=== PATIENT | female | born 1965 | race Caucasian/White ===

== ENCOUNTER 2016-11-20 07:32 | Observation (INO) | payer OTHER ==
[2016-11-20] MEDS ORDERED: NS 1,000 ML IV ONE (07:35)
[2016-11-20] MEDS ORDERED: ASPIRIN EC 325 MG TAB PO ONE (07:35)
[2016-11-20] MEDS ORDERED: FAMOTIDINE 20 MG TAB PO ONE (07:35)
[2016-11-20] MEDS ORDERED: DIAZEPAM 5 MG TAB PO ONE (07:35)
[2016-11-20] MEDS ORDERED: diphenhydrAMINE 25 MG CAP PO ONE (07:35)
--- NOTE | 2016-11-20 08:06 | CPEKG ---
Heart Rate: 98 RR Interval: 612 P-R Interval: 168 QRSD Interval: 78 QT Interval: 356 QTC Interval: 455 P Stur[place]: 15 QRS [place]: 47 T Wave Stur[place]: 72 EKG Severity - ABNORMAL ECG - EKG Impression: SINUS RHYTHM EKG Impression: NONSPECIFIC T ABNORMALITIES, ANT-LAT LEADS Electronically Signed By: Yevgeniy Nunes 20-Nov-2016 10:25:03
[2016-11-20 08:21] LABS: % IMMATURE GRANULYOCYTES 0.3 % (0.0-1.1); ABSOLUTE IMMATURE GRANULOCYTES 0.02 10^3/uL (0.00-0.10); ADD DIFF? NO; ADD MORPH? NO; ADD SCAN? NO; ATYPICAL LYMPHOCYTE FLAG 0 (0-99); FRAGMENT RBC FLAG 0 (0-99); HEMATOCRIT 42.2 % (38.0-47.0); HEMOGLOBIN 14.5 g/dL (12.6-16.3); LEFT SHIFT FLG 0 (0-99); LIPEMIA HEMOLYSIS FLAG 90 (0-99); MEAN CELL HEMOGLOBIN 31.3 pg (27.9-34.1); MEAN CELL HEMOGLOBIN CONCENTR. 34.4 g/dL (32.4-36.7); MEAN CELL VOLUME 90.9 fL (81.5-99.8); MEAN PLATELET VOLUME 9.4 fL (8.7-11.7); PLATELET CLUMPS FLAG 0 (0-99); PLATELET COUNT 274 10^3/uL (150-400); RED BLOOD CELL COUNT 4.64 10^6/uL (4.18-5.33); RED CELL DISTRIBUTION WIDTH 11.7 % (11.5-15.2)
[2016-11-20 08:30] LABS: INR 0.93 (0.83-1.16); PROTIME(PATIENT) 12.4 SEC (12.0-15.0)
[2016-11-20 08:36] LABS: ANION GAP 15 mEq/L (8-16); CALCIUM 9.9 mg/dL (8.5-10.4); CARBON DIOXIDE 23 mEq/l (22-31); CHLORIDE 101 mEq/L (97-110); CHOLESTEROL 235 mg/dL (140-220); CHOLESTEROL/HDL RATIO 2.87 RATIO (1.00-4.44); CREATININE 0.8 mg/dL (0.6-1.0); GLOMERULAR FILTRATION RATE > 60; GLUCOSE 101 mg/dL (70-100); HIGH DENSITY LIPOPROTEIN 82 mg/dL (40-85); LDL/HDL RATIO 1.54 RATIO (1.00-3.22); LOW DENSITY LIPOPROTEIN 126 mg/dL (80-100); MAGNESIUM 2.2 mg/dL (1.6-2.3); NON-HIGH DENSITY LIPOPROTEIN 153 mg/dL (90-129); POTASSIUM 4.2 mEq/L (3.5-5.2); SODIUM 139 mEq/L (134-144); TRIGLYCERIDE 139 mg/dL (35-135); VERY LOW DENSITY LIPOPROTEINS 27 mg/dL (8-25)
[2016-11-20] MEDS ORDERED: LIDOCAINE 1% 300 MG/30 ML SDV ONE (08:48)
[2016-11-20] MEDS ORDERED: fentaNYL 100 MCG/2 ML INJ ONE ×3 (08:48→10:03)
[2016-11-20] MEDS ORDERED: IOPAMIDOL (ISOVUE-370) 150 ML BTL IV ONE (08:49)
[2016-11-20] MEDS ORDERED: MIDAZOLAM 2 MG/2 ML VIAL ONE ×5 (08:49→10:05)
--- NOTE | 2016-11-20 09:00 | PDPROPOC ---
Sedation Plan of Care Sedation Plan of Care: vital signs stable, mental status noted, patient educated of risks, benefits, alternatives, patient can tolerate sedation ASA Classification: ASA 1 Planned drugs: fentanyl, midazolam Mallampati Score: Class 1 Mallampati Reference Image: Patient passed 3-3-2 rule?: Yes
--- NOTE | 2016-11-20 09:05 | PDGENHP ---
History & Physical Chief Complaint: Chest pains with abnormal ECG History of Present Illness: Patient is a 51 y/o female with HTN, HLP, and strong , premature CAD to the family, who has noted further complaints of chest pains. ECG continues to have non specific findings (suggestive of ischaemia). 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 remainder of PE is as noted with last office visit in August 2016 Cardiorespiratory Assessment: RRR without m/r/g, normal S1S2, no JVD, no edema, no dyspnea
[2016-11-20] MEDS ORDERED: BIVALIRUDIN 250 MG/5 ML VIAL IV ONE (09:52)
[2016-11-20] MEDS ORDERED: NITROGLYCERIN 1,500 MCG/15 ML VIAL MISC ONE (10:05)
--- NOTE | 2016-11-20 10:26 | PDDXCAT ---
Diagnostic Cath Note - . Date: 11/20/16 Staffing Specialist: Manju Indication: Patient w angina/susp CAD, cannot be risk stratified by other means , Patient occupation involves safety of others, with high risk for CAD - Procedure Access: right groin Procedure: left heart catheterization, coronary angiography, left ventriculogram - Materials Left Heart Cath size: 6F Left Heart Cath materials: standard multipack (JL4, JR4, pigtail) - Findings-Left Heart Catheterization LM: short vessel with bifurcation into the LAD and LCX. no luminal irregularities were noted LAD: medium diameter vessel with noted calcium in the proximal segment. just proximal to D1 there was an 80% lesion noted. just distal to D2 (principal) there was another segment of luminal irregularities noted (50-60%). further distal there is a smallish D3. LCX: large caliber vessel with a principal OM. no appreciable luminal irregularities were noted in the circumflex system RCA: medium diameter vessel with trifurcation distally into branches that supply the PDA territory. this lesion was 50-60% as well. OLIVIA III flow was noted. EDP: 16 mm Hg LVEF: 65% Wall motion: normal wall motion Complications: none Estimated blood loss: <50ml Closure method: other (pending intervention) Assessment: patient is a 51 y/o female with history of CAD (by MSCT), HTN, HLP, and strong, premature CAD family history with non specific ST/T wave changes on ETT, no overt ischaemia on MPI, but complaints of chest pains. patient was taken to the custodial laborer and a critical proximal LAD lesion was noted with luminal irregularities to the mid LAD and distal RCA. normal LVEF and wall motion Plan: Dr. Emy Rausch to perform PCI to the proximal LAD lesion. Intervention: pLAD
[2016-11-20] MEDS ORDERED: PRASUGREL HCL 10 MG TAB ONE (10:29)
[2016-11-20] MEDS ORDERED: PRASUGREL HCL 10 MG TAB PO ONE (11:01)
[2016-11-20] MEDS ORDERED: ATROPINE SULFATE 1 MG/10 ML SYR IVP PRN (11:01)
[2016-11-20] MEDS ORDERED: ACETAMINOPHEN 325 MG TAB PO PRN (11:01)
[2016-11-20] MEDS ORDERED: NITROGLYCERIN 0.4 MG BTL SL PRN (11:01)
[2016-11-20] MEDS ORDERED: ONDANSETRON 4 MG/2 ML VIAL IVP PRN (11:01)
[2016-11-20] MEDS ORDERED: TEMAZEPAM 15 MG CAP PO PRN (11:01)
--- NOTE | 2016-11-20 11:14 | PDDXCAT ---
Diagnostic Cath Note - . Date: 11/20/16 Seo Team Lead: Shalom Indication: other (Chest discomfort; High grade proximal LAD stenosis; High risk occupation.) Complications: None Estimated blood loss: <50ml Closure method: Angioseal Assessment: Successful PCI of the LAD using a single drug coated stent. Plan: 1) Aggressive secondary prevention. 2) Dual antiplatelet therapy for 1 year. Intervention: Please refer to the diagnostic cardiac cath note by Dr. Yevgeniy Nunes. 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 The patient received intravenous Angiomax. A 6 [place] CLS 3.5 guide catheter was advanced to the left main. An Intuition guidewire was advanced to the apical portion of the LAD. Predilatation of the target lesion was performed using a 2.5 x 12 mm Emerge balloon. A 3.0 x 20 mm Synergy stent was advanced into position and deployed at high pressure. Final angiograms demonstrated 0% residual stenosis and OLIVIA-III flow.
[2016-11-20] MEDS ORDERED: NS 1,000 ML IV SCH (11:15)
--- NOTE | 2016-11-20 12:19 | CPEKG ---
Heart Rate: 85 RR Interval: 706 P-R Interval: 168 QRSD Interval: 72 QT Interval: 380 QTC Interval: 452 P Buhl: 19 QRS Buhl: 52 T Wave Buhl: 57 EKG Severity - ABNORMAL ECG - EKG Impression: SINUS RHYTHM EKG Impression: ABNORMAL T, CONSIDER ISCHEMIA, ANTERIOR LEADS Preliminary Awaiting MD Review
--- NOTE | 2016-11-20 13:25 | CPEKG ---
Heart Rate: 94 RR Interval: 638 P-R Interval: 184 QRSD Interval: 70 QT Interval: 360 QTC Interval: 451 P [place]: 24 QRS [place]: 49 T Wave [place]: 48 EKG Severity - ABNORMAL ECG - EKG Impression: SINUS RHYTHM EKG Impression: NONSPECIFIC T ABNORMALITIES, ANTERIOR LEADS Electronically Signed By: Kenneth Lopez 20-Nov-2016 17:19:55
[2016-11-20] MEDS: HYDROCODONE/APAP 5/325 TAB PO PRN ×2 (15:58→19:51)
[2016-11-20] MEDS ORDERED: ARIPiprazole 5 MG TAB PO SCH (21:00)
[2016-11-20] MEDS ORDERED: VENLAFAXINE XR 75 MG CAP PO SCH (21:00)
[2016-11-20] MEDS ORDERED: LOSARTAN POTASSIUM 50 MG TAB PO SCH (21:00)
[2016-11-20] MEDS ORDERED: ZOLPIDEM TARTRATE 5 MG TAB PO SCH (21:00)
[2016-11-20] MEDS ORDERED: ROSUVASTATIN CALCIUM 20 MG TAB PO SCH (21:00)
[2016-11-20] MEDS ORDERED: NON-FORMULARY NEW DRUG (Eszopiclone [Lunesta] 3 MG) PO SCH (21:00)
[2016-11-21] MEDS: HYDROCODONE/APAP 5/325 TAB PO PRN ×2 (04:29→12:35)
[2016-11-21 05:54] LABS: % IMMATURE GRANULYOCYTES 0.2 % (0.0-1.1); ABSOLUTE IMMATURE GRANULOCYTES 0.01 10^3/uL (0.00-0.10); ADD DIFF? NO; ADD MORPH? NO; ADD SCAN? NO; ATYPICAL LYMPHOCYTE FLAG 10 (0-99); FRAGMENT RBC FLAG 0 (0-99); HEMOGLOBIN 13.9 g/dL (12.6-16.3); LEFT SHIFT FLG 0 (0-99); LIPEMIA HEMOLYSIS FLAG 90 (0-99); MEAN CELL HEMOGLOBIN 31.4 pg (27.9-34.1); MEAN CELL HEMOGLOBIN CONCENTR. 33.9 g/dL (32.4-36.7); MEAN CELL VOLUME 92.6 fL (81.5-99.8); MEAN PLATELET VOLUME 9.5 fL (8.7-11.7); PLATELET CLUMPS FLAG 0 (0-99); PLATELET COUNT 234 10^3/uL (150-400); RED BLOOD CELL COUNT 4.43 10^6/uL (4.18-5.33); RED CELL DISTRIBUTION WIDTH 11.8 % (11.5-15.2)
[2016-11-21 05:58] LABS: ANION GAP 11 mEq/L (8-16); CARBON DIOXIDE 24 mEq/l (22-31); CHLORIDE 105 mEq/L (97-110); GLUCOSE 87 mg/dL (70-100); POTASSIUM 4.6 mEq/L (3.5-5.2); SODIUM 140 mEq/L (134-144)
[2016-11-21 05:59] LABS: ALBUMIN 4.3 g/dL (3.5-5.0); ASPARTATE AMINOTRANSFERASE 26 IU/L (14-46); BILIRUBIN,TOTAL 0.7 mg/dL (0.1-1.4); CALCIUM 9.2 mg/dL (8.5-10.4); CREATININE 0.8 mg/dL (0.6-1.0); GLOMERULAR FILTRATION RATE > 60; LACTATE DEHYDROGENASE 456 IU/L (313-618); MAGNESIUM 2.4 mg/dL (1.6-2.3)
[2016-11-21 07:32] VITALS: RESP 16
[2016-11-21] MEDS ORDERED: ASPIRIN EC 325 MG TAB PO SCH (09:00)
[2016-11-21] MEDS ORDERED: MULTIVITAMINS 1 EACH TAB PO SCH (09:00)
[2016-11-21] MEDS ORDERED: PRASUGREL HCL 10 MG TAB PO SCH (09:00)
--- NOTE | 2016-11-21 09:17 | CPEKG ---
Heart Rate: 80 RR Interval: 750 P-R Interval: 164 QRSD Interval: 74 QT Interval: 388 QTC Interval: 448 P [place]: 18 QRS [place]: 33 T Wave [place]: 75 EKG Severity - BORDERLINE ECG - EKG Impression: SINUS RHYTHM EKG Impression: BORDERLINE T ABNORMALITIES, ANT-LAT LEADS Electronically Signed By: Yevgeniy Nunes 21-Nov-2016 09:52:21
[2016-11-21 11:37] VITALS: BP 117/84; PULSE 98; TEMP 99.3; O2SAT 91
--- NOTE | 2016-11-21 14:17 | ASMTCASEMG ---
Living Arrangements What is your living Answers: With Spouse arrangement? Who do you live with? Type Of Residence What kind of residence do Answers: House you live in? Discharge Plan Comments Coordination Status Comments Notes: Please disregard d/c summary on 11/21/16. Pt d/c home independently w/out any needs. Date Signed: 11/21/2016 02:17 PM Electronically Signed By:UMM Cee
--- NOTE | 2016-11-21 16:19 | ASDISCHSUM ---
Discharge Information Plan Status:Home with No Needs Medically Cleared to Leave:11/21/2016 Discharge Date:11/21/2016 02:44 PM D/C Disposition: ADT D/C Disposition:Home, Routine, Self-Care Projected Discharge Date:11/21/2016 12:00 AM Transportation at D/C: Discharge Delay Reason: Follow-Up Date:11/21/2016 12:00 AM Discharge Slot: Final Diagnosis: Placement Information Patient Contact Information Contact Name:ROSALIA Relationship:Nanette Address: Work Phone: City: [facility] Phone: State/[place] Code: Email: Financial Information Financial Class:[facility] Primary Plan Desc:YING O HMO OPEN ACC LOCAL Primary Plan Number:[id number] Secondary Plan Desc: Secondary Plan Number: Assessment Information [facility] Initial CM Assessment Living Arrangements What is your living Answers: With Spouse arrangement? Who do you live with? Type Of Residence What kind of residence do Answers: House you live in? Discharge Plan Comments Coordination Status Comments Notes: Chart reviewed and spoke w/ LEIGHA Sanchez, pt is a 39 y/o female admitted w/ hyperkalemia; ESRD. Pt will most likely discharge independent when medically stable w/ supportive . No therapies ordered at this time. CM available for changes. Date Signed: 11/21/2016 02:17 PM Electronically Signed By:UMM Cee Intervention Information
--- NOTE | 2016-11-21 19:57 | GDS ---
[f rep st] DISCHARGE SUMMARY REASON FOR ADMISSION: Coronary artery disease. HOSPITAL COURSE: Please refer to Dr. Yevgeniy Nunes recent office note, which serves as the admission h istory and physical for this hospital encounter. Please also refer to his diagnostic cardiac cathete rization report and my interventional cardiac catheterization report. Briefly, the patient is a 51-y ear-old woman with an extensive family history of premature coronary artery disease. She had some mi nimal issues with chest discomfort. A nuclear stress test did not reveal any significant findings winters ggestive of ischemia. However, because of her extensive family history, Dr. Nunes felt that it was appropriate for her to undergo cardiac catheterization. That procedure was performed yesterday. It demonstrated a proximal LAD lesion of 80%. There was moderate diffuse disease in the mid to distal L AD. The circumflex had trace atherosclerosis. The RCA had moderate disease at its distal portion. The decision was made to perform PCI of the proximal LAD lesion. She received a 3.0 x 20 mm Synergy stent. Overnight, she has had no symptoms of chest discomfort. She has not had any arrhythmias or e vidence of CHF. She has not had any bleeding complications at her right femoral catheterization site . RECOMMENDATIONS AND DISPOSITION ON DISCHARGE: The patient is stable for discharge today. She should pursue a heart-healthy diet and regular exercise. Her lipid panel in the hospital demonstrated a to jessica cholesterol of 235 with HDL 82, LDL 126, and triglycerides 139. Her target LDL should be less th an 70. Her Crestor dosage will be increased to 40 mg daily. The only addition to her medical regime n is Effient 10 mg daily. She should be on dual antiplatelet therapy for 12 months. Her other medic ludmila remain unchanged. 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 They will also arrange for a follow-up appointment with Dr. Nunes. DISCHARGE DIAGNOSES: 1. Coronary artery disease. 2. Hyperlipidemia. 3. Status post percutaneous coronary intervention of the LAD. /[id number]/MODL
[2016-11-22] MEDS ORDERED: ROSUVASTATIN CALCIUM 40 MG TAB PO SCH (09:00)
[2016-11-24 15:20] LABS: 2C19S INTERPRETATION See Comments
== END 2016-11-21 14:44 | disposition home or self-care (01) ==
LOC: FCATH 07:32 → F2W 10:43
PROVIDERS: ADMIT Internal Medicine Cardiovascular Disease; ATTEND Internal Medicine Cardiovascular Disease
PROC: 02703DZ Dilation of Coronary Artery, One Artery with Intraluminal Device, Percutaneous Approach (ICD-10-PCS; principal; 2016-11-20)
PROC: B2151ZZ Fluoroscopy of Left Heart using Low Osmolar Contrast (ICD-10-PCS; 2016-11-20)
PROC: B2111ZZ Fluoroscopy of Multiple Coronary Arteries using Low Osmolar Contrast (ICD-10-PCS; 2016-11-20)
PROC: 4A023N7 Measurement of Cardiac Sampling and Pressure, Left Heart, Percutaneous Approach (ICD-10-PCS; 2016-11-20)
DX: I25.10 Atherosclerotic heart disease of native coronary artery without angina pectoris (principal)
CPT/HCPCS: 92928; 93005; 93458; C1725; C1769; C1887; G0378; 81225-90; C1760; C1874; C9600; J0583; J1644; J2250; J3010; Q9967

== ENCOUNTER 2018-02-09 12:28 | Emergency (ER) | payer OTHER ==
[2018-02-09] MEDS ORDERED: NS 1,000 ML IV ONE ×2 (13:00→13:40)
--- NOTE | 2018-02-09 13:00 | EDPHY ---
H & P Stated Complaint: epistaxis this am/dr noted tachycardia/lightheaded Time Seen by Provider: 02/09/18 13:00 HPI/ROS: CHIEF COMPLAINT: Epistaxis, tachycardia HISTORY OF PRESENT ILLNESS: The patient presents the emergency department with a 1 day history of epistaxis. The patient is currently on Effient. The patient reportedly had heavy epistaxis last night which has resolved. The patient went to her primary care provider's office was noted to be tachycardic with a heart rate in the 150s. Patient does feel orthostatic and dizzy. The patient does have some nausea and did have an episode of vomiting secondary to swallowed blood this morning. She denies any asymmetric calf pain or swelling. She denies additional acute complaints. REVIEW OF SYSTEMS: A comprehensive 10 point review of systems is otherwise negative aside from elements mentioned in the history of present illness. Source: Patient - Personal History LMP (Females 10-55): IUD In Place Current Tetanus Diphtheria and Acellular Pertussis (TDAP): Yes - Medical/Surgical History Hx Asthma: No Hx Chronic Respiratory Disease: No Hx Diabetes: No Hx Cardiac Disease: Yes Hx Renal Disease: No Hx Cirrhosis: No Hx Alcoholism: No Hx HIV/AIDS: No Hx Splenectomy or Spleen Trauma: No Other PMH: nontramatic brain bleed 14/ rt hip ORIF/ - Social History Smoking Status: Never smoked - Physical Exam Exam: General Appearance: Alert, no distress Eyes: Pupils equal and round no pallor or injection ENT, Mouth: Mucous membranes moist, adherent clot noted to the right anterior nasal septum Respiratory: There are no retractions, lungs are clear to auscultation Cardiovascular: Tachycardic, regular Gastrointestinal: Abdomen is soft and nontender, no masses, bowel sounds normal Neurological: A&O, normal motor function, normal sensory exam, normal cranial nerves Skin: Warm and dry, no rashes Musculoskeletal: Neck is supple nontender Extremities: symmetrical, full range of motion Psychiatric: Patient is oriented X 3, there is no agitation Constitutional: Initial Vital Signs Temperature (C) 36.3 C 02/09/18 12:31 Heart Rate 137 H 02/09/18 12:31 Respiratory Rate 20 02/09/18 12:31 Blood Pressure 121/97 H 02/09/18 12:31 O2 Sat (%) 97 02/09/18 12:31 O2 Delivery Mode Room Air Allergies/Adverse Reactions: Sulfa (Sulfonamide Antibiotics) [Sulfa(Sulfonamide Antibiotics)] Allergy ( Verified 02/09/18 12:30) Hives Home Medications: Medication Instructions Recorded ARIPiprazole [Abilify 5 mg (*)] 5 mg PO HS 12/16/15 Venlafaxine Xr [Effexor Xr 75MG 150 mg PO HS 12/16/15 (*)] Aspirin [Aspirin 81mg (*)] 81 mg PO HS 11/20/16 Losartan Potassium [Cozaar 50 mg 100 mg PO HS 11/20/16 (*)] Multivitamins [Multivitamin (*)] 1 each PO DAILY 11/20/16 Prasugrel HCl [Effient 10mg (*)] 10 mg PO DAILY #30 tab 11/21/16 Rosuvastatin Calcium [Crestor 40mg 40 mg PO DAILY #30 tab 11/21/16 (*)] Medical Decision Making - Diagnostics EKG Interpretation: EKG: Complete interpretation has been separately recorded in the [employer] archive. Summary impression: Sinus tachycardia, rate 103 ED Course/Re-evaluation: Patient presents to the ED with a vasovagal episode in the setting of blood loss from a nose bleed. The patient's initial hematocrit was normal however after receiving 2 L of normal saline at did drop into the high 30s. The patient is now ambulatory without acute complaints. Her tachycardia has resolved. Her blood pressure is normal. She is having no recurrent epistaxis. I did consult with her structural steel worker helper Dr. Nunes. She has been on Effient for greater than a year following her stent. She can stop this medication indefinitely per his recommendation. The patient will be discharged home in stable condition. She is given customary aftercare instructions and return precautions. Differential Diagnosis: Differential diagnosis considered includes critical anemia, anterior epistaxis, hypovolemia - Data Points Laboratory Results: Laboratory Results 02/09/18 12:40 02/09/18 12:40 02/09/18 02/09/18 02/09/18 14:54 12:46 12:40 WBC RBC Hgb POC Hgb 10.5 gm/dL L gm/dL (12.6-16.3) Hct POC Hct 31 % L % (38-47) MCV MCH MCHC RDW Plt Count MPV Neut % (Auto) Lymph % (Auto) [place] % (Auto) Eos % (Auto) Baso % (Auto) Nucleat RBC Rel Count Absolute Neuts (auto) Absolute Lymphs (auto) Absolute Monos (auto) Absolute Eos (auto) Absolute Basos (auto) Absolute Nucleated RBC Immature Gran % Immature Gran # PT 13.1 SEC SEC (12.0-15.0) INR 0.97 (0.83-1.16) APTT 21.3 SEC L SEC (23.0-38.0) POC Sodium 143 mEq/L mEq/L (135-145) Sodium POC Potassium 4.0 mEq/L mEq/L (3.3-5.0) Potassium POC Chloride 108 mEq/L mEq/L (97-110) Chloride Carbon Dioxide Anion Gap POC BUN 33 mg/dL H mg/dL (7-23) BUN Creatinine POC Creatinine 0.7 mg/dL mg/dL (0.6-1.0) Estimated GFR Glucose POC Glucose 99 mg/dL mg/dL (70-100) Calcium POC Troponin I 0.00 ng/mL ng/mL (0.00-0.08) 02/09/18 02/09/18 12:40 12:40 WBC 15.11 10^3/uL H 10^3/uL (3.80-9.50) RBC 4.31 10^6/uL 10^6/uL (4.18-5.33) Hgb 13.3 g/dL g/dL (12.6-16.3) POC Hgb Hct 40.3 % % (38.0-47.0) POC Hct MCV 93.5 fL fL (81.5-99.8) MCH 30.9 pg pg (27.9-34.1) MCHC 33.0 g/dL g/dL (32.4-36.7) RDW 11.9 % % (11.5-15.2) Plt Count 413 10^3/uL H 10^3/uL (150-400) MPV 10.1 fL fL (8.7-11.7) Neut % (Auto) 68.4 % % (39.3-74.2) Lymph % (Auto) 24.0 % % (15.0-45.0) [place] % (Auto) 5.7 % % (4.5-13.0) Eos % (Auto) 0.9 % % (0.6-7.6) Baso % (Auto) 0.5 % % (0.3-1.7) Nucleat RBC Rel Count 0.0 % % (0.0-0.2) Absolute Neuts (auto) 10.34 10^3/uL H 10^3/uL (1.70-6.50) Absolute Lymphs (auto) 3.62 10^3/uL H 10^3/uL (1.00-3.00) Absolute Monos (auto) 0.86 10^3/uL H 10^3/uL (0.30-0.80) Absolute Eos (auto) 0.14 10^3/uL 10^3/uL (0.03-0.40) Absolute Basos (auto) 0.08 10^3/uL 10^3/uL (0.02-0.10) Absolute Nucleated RBC 0.00 10^3/uL 10^3/uL (0-0.01) Immature Gran % 0.5 % % (0.0-1.1) Immature Gran # 0.07 10^3/uL 10^3/uL (0.00-0.10) PT INR APTT POC Sodium Sodium 139 mEq/L mEq/L (135-145) POC Potassium Potassium 4.1 mEq/L mEq/L (3.5-5.2) POC Chloride Chloride 106 mEq/L mEq/L (97-110) Carbon Dioxide 22 mEq/l mEq/l (22-31) Anion Gap 11 mEq/L mEq/L (6-14) POC BUN BUN 40 mg/dL H mg/dL (7-23) Creatinine 0.8 mg/dL mg/dL (0.6-1.0) POC Creatinine Estimated GFR > 60 Glucose 157 mg/dL H mg/dL (70-100) POC Glucose Calcium 9.9 mg/dL mg/dL (8.5-10.4) POC Troponin I Medications Given: Discontinued Medications Sodium Chloride (Ns) 1,000 mls @ 0 mls/hr IV EDNOW ONE; Wide Open PRN Reason: Protocol Stop: 02/09/18 13:01 Last Admin: 02/09/18 13:16 Dose: 1,000 mls Sodium Chloride (Ns) 1,000 mls @ 0 mls/hr IV EDNOW ONE; Wide Open PRN Reason: Protocol Stop: 02/09/18 13:41 Last Admin: 02/09/18 13:49 Dose: 1,000 mls Point of Care Test Results: Chemistry 02/09/18 02/09/18 14:54 12:46 POC Sodium 143 mEq/L mEq/L (135-145) POC Potassium 4.0 mEq/L mEq/L (3.3-5.0) POC Chloride 108 mEq/L mEq/L (97-110) POC BUN 33 mg/dL H mg/dL (7-23) POC Creatinine 0.7 mg/dL mg/dL (0.6-1.0) POC Glucose 99 mg/dL mg/dL (70-100) POC Troponin I 0.00 ng/mL ng/mL (0.00-0.08) ISTAT H&H 02/09/18 14:54 POC Hgb 10.5 gm/dL L gm/dL (12.6-16.3) POC Hct 31 % L % (38-47) Departure - Departure Disposition: Home, Routine, Self-Care Clinical Impression: Vasovagal episode, Anemia Condition: Good Instructions: Syncope (ED) Additional Instructions: 1. Return to the emergency department for recurrent bleeding, lightheadedness, chest pain or other concerns. 2. I spoke with Dr. Nunes and you can stop taking your Effient entirely since your stent has been in for greater than 1 year. 3. Follow up with your primary care provider as needed. Referrals: Yevgeniy Victoria DO [Primary Care Provider] - As per Instructions
[2018-02-09 13:11] LABS: PLATELET COUNT 413 10^3/uL (150-400)
[2018-02-09 13:25] LABS: INR 0.97 (0.83-1.16); PROTIME(PATIENT) 13.1 SEC (12.0-15.0)
--- NOTE | 2018-02-09 13:53 | CPEKG ---
Test Reason : OPEN Blood Pressure : / mmHG Vent. Rate : 103 BPM Atrial Rate : 103 BPM P-R Int : 157 ms QRS Dur : 071 ms QT Int : 335 ms P-R-T Axes : 038 042 055 degrees QTc Int : 439 ms Sinus tachycardia Probable left atrial enlargement Confirmed by Waqar Warren ([id number]) on 02/09/2018 1:53:18 PM Referred By: Confirmed By:Waqar Warren
[2018-02-09 15:51] VITALS: BP 122/99
== END 2018-02-09 16:01 | disposition home or self-care (01) ==
DX: R55 Syncope and collapse (principal); D64.9 Anemia, unspecified; E86.9 Volume depletion, unspecified; R00.0 Tachycardia, unspecified; Z88.2 Allergy status to sulfonamides
CPT/HCPCS: 82435-PO; 82565-PO; 82947-PO; 84132-PO; 84295-PO; 84484-ER; 84520-PO; 85014-PO